=== PATIENT | female | born 1970 | race Two or more races ===

== ENCOUNTER 2023-05-18 17:41 | Emergency (ER) | payer OTHER ==
[~2023-05-18] VITALS: Ht 157.5 cm; Wt 70.8 kg
[2023-05-18] MEDS ORDERED: COZAAR100 MG PO (18:03)
[2023-05-18] MEDS ORDERED: LANTUS SOL100 UNIT/1 (18:03)
[2023-05-18] MEDS ORDERED: HUMALOG100 UNIT/1 (18:03)
[2023-05-18] MEDS ORDERED: CLINDAMYCIN PHOSPHATE 150 MG/ML (600mg) IM STA (18:52)
[2023-05-18] MEDS ORDERED: CLEOCIN HCL300 MG PO (19:13)
== END 2023-05-18 19:38 | disposition home or self-care (01) ==
LOC: ER 17:41
DX: L01.09 Other impetigo (principal); E11.9 Type 2 diabetes mellitus without complications; Z79.4 Long term (current) use of insulin; I10 Essential (primary) hypertension; I73.89 Other specified peripheral vascular diseases

== ENCOUNTER 2023-05-24 19:16 | Inpatient (IN) | payer OTHER ==
[~2023-05-24] VITALS: Ht 167.6 cm; Wt 77.1 kg
[~2023-05-24 19:16] MED LIST: CLEOCIN HCL300 MG PO; COZAAR100 MG PO; HUMALOG100 UNIT/1; LANTUS SOL100 UNIT/1
[2023-05-24] MEDS ORDERED: INSULIN REGULAR, HUMAN 1,000 UNIT/10 ML UNITS IV ONE (19:30)
[2023-05-24] MEDS ORDERED: ONDANSETRON HCL 2 MG/ML VIAL IV ONE (19:30)
[2023-05-24] MEDS ORDERED: 0.9 % SODIUM CHLORIDE 1,000 ML IV SCH ×2 (19:30→21:30)
[2023-05-24 19:53] LABS: HEMATOCRIT 34.9 % (36.0-45.00); HEMOGLOBIN 11.1 g/dL (12.0-15.00); MEAN CELL VOLUME 93.8 fL (80.00-100.00); MEAN CORPUSCULAR HEMOGLOBIN 29.7 pg (27.00-32.0); MEAN CORPUSCULAR HGB CONC 31.7 g/dl (32.0-36.0); PLATELET COUNT 316 K/uL (150-450); RED BLOOD COUNT 3.72 M/uL (4.00-6.00)
[2023-05-24 20:19] LABS: ALBUMIN 3.4 gm/dL (3.4-5.0); BILIRUBIN TOTAL 1.49 mg/dL (0.3-1.2); CALCIUM 9.2 mg/dL (8.5-10.1); CREATININE SERUM 1.44 mg/dL (0.55-1.02); GFR 38.53; GLOBULINA 4.1 G/DL (2.4-3.5); POTASSIUM 5.67 mEq/L (3.5-5.1); TOTAL PROTEIN 7.5 gm/dL (6.4-8.2)
[2023-05-24] MEDS ORDERED: INSULIN REGULAR, HUMAN 1,000 UNIT/10 ML UNITS IV SCH (20:30)
[2023-05-24 21:04] LABS: ABG PO2 115.2 mmHg (80-100); ABG pCO2 33.5 mmHg (35-45); BASE EXCESS -12.7 mmol/l; BICARBONATE 13.7 mmol/l (23-25); SaO2 97.1 %; Tco2 14.7 mmol/l
[2023-05-24 21:05] LABS: allen test SATISFACTORY; o2 24 %; puncture site RADIAL LEFT
[2023-05-24] MEDS ORDERED: CEFEPIME HCL 1,000 MG in 0.9 % SODIUM CHLORIDE 50 ML IV SCH (21:44)
[2023-05-24] MEDS ORDERED: ACETAMINOPHEN 500 MG GEL..CAP PO PRN (21:45)
[2023-05-24] MEDS ORDERED: VANCOMYCIN HCL 1,000 MG VIAL IV SCH (21:51)
[2023-05-24 22:00] LABS: URINE APPEARANCE Clear; URINE BILIRRUBIN Negative (NEGATIVE); URINE BLOOD Negative; URINE COLOR Yellow; URINE LEUKOCYTE Negative; URINE NITRATE Negative; URINE PROTEIN Trace (NEGATIVE); URINE UROBILINOGEN 0.2 E.U./dl
[2023-05-24] MEDS ORDERED: ONDANSETRON HCL 4 MG in 0.9 % SODIUM CHLORIDE 50 ML IV PRN (22:00)
[2023-05-24 22:03] LABS: URINE BACTERIA 84.4 uL (0.0-1933); URINE EPITHELIAL CELLS 9.8 uL (0.0-38.8); URINE RBC 2.8 uL (0.0-20.8); URINE WBC 43.7 uL (0.0-23.2)
[2023-05-24 22:04] LABS: URINE GLUCOSE >=1000 MG/DL (NEGATIVE)
[2023-05-25 00:37] LABS: CALCIUM 9.2 mg/dL (8.5-10.1); CREATININE SERUM 1.36 mg/dL (0.55-1.02); GFR 41.16; MAGNESIUM 2.2 mg/dL (1.8-2.4); PHOSPHOROUS 3.7 mg/dL (2.5-4.9); POTASSIUM 4.69 mEq/L (3.5-5.1)
[2023-05-25 00:38] LABS: INR < 0.93; PARTIAL THROMBOPLASTIN TIME 26.7 SECONDS (22.0-34.0); PROTHROMBIN TIME 9.6 SECONDS (9.0-11.5)
[2023-05-25 01:58] LABS: CALCIUM 8.9 mg/dL (8.5-10.1); CREATININE SERUM 1.16 mg/dL (0.55-1.02); GFR 49.45; POTASSIUM 4.41 mEq/L (3.5-5.1)
[2023-05-25] MEDS ORDERED: DEXTROSE 5 % IN WATER 1,000 ML IV SCH (04:15)
[2023-05-25 07:31] LABS: ABG PH 7.311 (7.35-7.45); ABG PO2 104.7 mmHg (80-100); ABG pCO2 39.9 mmHg (35-45); BASE EXCESS -6.1 mmol/l; BICARBONATE 19.7 mmol/l (23-25); Tco2 20.9 mmol/l; o2 21 %
[2023-05-25 07:32] LABS: allen test SATISFACTORY; puncture site RADIAL LEFT
[2023-05-25 07:33] LABS: SaO2 97.2 %
[2023-05-25 07:51] LABS: CALCIUM 8.3 mg/dL (8.5-10.1); CREATININE SERUM 0.97 mg/dL (0.55-1.02); GFR 60.79; POTASSIUM 4.41 mEq/L (3.5-5.1)
[2023-05-25] MEDS ORDERED: FAMOTIDINE/PF 20 MG in 0.9 % SODIUM CHLORIDE 8 ML IV PUSH SCH (09:00)
[2023-05-25 12:05] LABS: CALCIUM 9.4 mg/dL (8.5-10.1); CREATININE SERUM 0.9 mg/dL (0.55-1.02); GFR 66.27; POTASSIUM 4.24 mEq/L (3.5-5.1)
[2023-05-25] MEDS ORDERED: INSULIN GLARGINE,HUM.REC.ANLOG 1,000 UNITS/10 ML UNITS SUBCUTANEO STA (13:47)
[2023-05-25] MEDS ORDERED: INSULIN LISPRO 1,000 UNIT/10 ML UNITS SUBCUTANEO PRN (14:15)
[2023-05-25] MEDS ORDERED: DEXTROSE 50 % IN WATER 0.5 G/ML DISP.SYRIN IV PRN (14:15)
[2023-05-25] MEDS ORDERED: LOSARTAN POTASSIUM 25 MG TABLET PO SCH (16:45)
[2023-05-25] MEDS ORDERED: INSULIN LISPRO 1,000 UNIT/10 ML UNITS SUBCUTANEO SCH (17:00)
[2023-05-25] MEDS ORDERED: NITROGLYCERIN IN 5 % DEXTROSE 50 MG/250 ML KIT IV ONE (22:25)
[2023-05-26 06:23] LABS: ABG PH 7.392 (7.35-7.45); ABG pCO2 44.5 mmHg (35-45); BASE EXCESS 1.1 mmol/l; BICARBONATE 26.5 mmol/l (23-25); SaO2 94.2 %; Tco2 27.8 mmol/l; allen test SATISFACTORY; o2 21 %; puncture site RADIAL RIGHT
[2023-05-26 07:23] LABS: HEMATOCRIT 32.2 % (36.0-45.00); HEMOGLOBIN 10.9 g/dL (12.0-15.00); MEAN CELL VOLUME 90.7 fL (80.00-100.00); MEAN CORPUSCULAR HEMOGLOBIN 30.6 pg (27.00-32.0); MEAN CORPUSCULAR HGB CONC 33.7 g/dl (32.0-36.0); PLATELET COUNT 246 K/uL (150-450); RED BLOOD COUNT 3.55 M/uL (4.00-6.00); RED CELL DISTRIBUTION WIDTH 14.8 % (11.5-14.5)
[2023-05-26] MEDS ORDERED: FAMOTIDINE/PF 20 MG/2 ML VIAL ONE (07:42)
[2023-05-26 07:56] LABS: ALBUMIN 2.7 gm/dL (3.4-5.0); BILIRUBIN TOTAL 1.69 mg/dL (0.3-1.2); CALCIUM 8.6 mg/dL (8.5-10.1); CREATININE SERUM 0.77 mg/dL (0.55-1.02); GFR 79.35; GLOBULINA 3.3 G/DL (2.4-3.5); MAGNESIUM 1.8 mg/dL (1.8-2.4); POTASSIUM 4.56 mEq/L (3.5-5.1)
[2023-05-26] MEDS ORDERED: INSULIN LISPRO 1,000 UNIT/10 ML UNITS SUBCUTANEO SCH (08:00)
[2023-05-26 08:12] LABS: C-REACTIVE PROTEIN 1.18 MG/DL (0.00-0.29)
[2023-05-26] MEDS ORDERED: CHLORHEXIDINE GLUCONATE 120 ML BOTTLE TOP ONE ×2 (10:38→15:45)
[2023-05-26] MEDS ORDERED: INSULIN GLARGINE,HUM.REC.ANLOG 1,000 UNITS/10 ML UNITS SUBCUTANEO SCH ×2 (12:00)
[2023-05-27] MEDS ORDERED: DIPHENHYDRAMINE HCL 50 MG/ML VIAL 1ML IV ONE (00:45)
[2023-05-27] MEDS ORDERED: FAMOTIDINE/PF 20 MG/2 ML VIAL ONE (07:43)
[2023-05-27 08:08] LABS: ALBUMIN 2.5 gm/dL (3.4-5.0); BILIRUBIN TOTAL 2.52 mg/dL (0.3-1.2); BILIRUBIN,CONJUGATED 1.97 mg/dL (0.0-0.2); BILIRUBIN,UNCONJUGATED 0.55 mg/dL (0.0-0.6); CALCIUM 8.1 mg/dL (8.5-10.1); CREATININE SERUM 0.58 mg/dL (0.55-1.02); GFR 110.04; GLOBULINA 3.1 G/DL (2.4-3.5); MAGNESIUM 1.7 mg/dL (1.8-2.4); POTASSIUM 3.67 mEq/L (3.5-5.1); TOTAL PROTEIN 5.6 gm/dL (6.4-8.2)
[2023-05-27] MEDS ORDERED: SODIUM CHLORIDE 0.45 % 1,000 ML IV SCH (09:00)
[2023-05-27] MEDS ORDERED: GABAPENTIN 300 MG CAPSULE PO SCH (13:01)
[2023-05-27] MEDS ORDERED: LOSARTAN POTASSIUM 25 MG TABLET PO STA (13:02)
[2023-05-27] MEDS ORDERED: CETIRIZINE HCL 5 MG/5 ML ML PO SCH (13:03)
[2023-05-28 07:10] LABS: CREATININE SERUM 0.64 mg/dL (0.55-1.02); GFR 98.22; POTASSIUM 4.17 mEq/L (3.5-5.1)
[2023-05-28] MEDS ORDERED: INSULIN LISPRO 1,000 UNIT/10 ML UNITS SUBCUTANEO SCH (08:00)
[2023-05-28] MEDS ORDERED: LOSARTAN POTASSIUM 50 MG TABLET PO SCH (09:00)
[2023-05-28] MEDS ORDERED: INSULIN GLARGINE,HUM.REC.ANLOG 1,000 UNITS/10 ML UNITS SUBCUTANEO SCH (12:00)
[2023-05-28] MEDS ORDERED: FAMOtidine 20 MG TABLET PO SCH (21:00)
[2023-05-29 11:43] LABS: HEMATOCRIT 36.9 % (36.0-45.00); HEMOGLOBIN 12.2 g/dL (12.0-15.00); MEAN CELL VOLUME 90.8 fL (80.00-100.00); MEAN CORPUSCULAR HEMOGLOBIN 30.1 pg (27.00-32.0); MEAN CORPUSCULAR HGB CONC 33.2 g/dl (32.0-36.0); PLATELET COUNT 274 K/uL (150-450); RED BLOOD COUNT 4.06 M/uL (4.00-6.00); RED CELL DISTRIBUTION WIDTH 15.2 % (11.5-14.5)
[2023-05-29] MEDS ORDERED: INSULIN GLARGINE,HUM.REC.ANLOG 1,000 UNITS/10 ML UNITS SUBCUTANEO SCH (12:00)
[2023-05-29 12:32] LABS: ALBUMIN 3.3 gm/dL (3.4-5.0); BILIRUBIN TOTAL 3.16 mg/dL (0.3-1.2); CALCIUM 9.9 mg/dL (8.5-10.1); CREATININE SERUM 0.7 mg/dL (0.55-1.02); GFR 88.57; GLOBULINA 4.4 G/DL (2.4-3.5); PHOSPHOROUS 3.8 mg/dL (2.5-4.9); POTASSIUM 4.18 mEq/L (3.5-5.1); TOTAL PROTEIN 7.7 gm/dL (6.4-8.2)
[2023-05-29] MEDS ORDERED: CEFEPIME HCL 1,000 MG in 0.9 % SODIUM CHLORIDE 50 ML IV SCH (17:00)
[2023-05-29] MEDS ORDERED: DIPHENHYDRAMINE HCL 50 MG/ML VIAL 1ML IV ONE (20:45)
[2023-05-30] MEDS ORDERED: DIPHENHYDRAMINE HCL 12.5 MG/5 ML BLIST.PACK PO ONE (06:45)
[2023-05-30 07:47] LABS: HEMOGLOBIN 11.3 g/dL (12.0-15.00); MEAN CELL VOLUME 91.2 fL (80.00-100.00); MEAN CORPUSCULAR HEMOGLOBIN 30.5 pg (27.00-32.0); MEAN CORPUSCULAR HGB CONC 33.4 g/dl (32.0-36.0); PLATELET COUNT 249 K/uL (150-450); RED BLOOD COUNT 3.72 M/uL (4.00-6.00); RED CELL DISTRIBUTION WIDTH 15.5 % (11.5-14.5)
[2023-05-30 08:07] LABS: BILIRUBIN TOTAL 2.14 mg/dL (0.3-1.2); CALCIUM 9.9 mg/dL (8.5-10.1); CREATININE SERUM 0.59 mg/dL (0.55-1.02); FERRITIN 217.2 NG/ML (8-252); GFR 107.89; GLOBULINA 3.8 G/DL (2.4-3.5); POTASSIUM 4.32 mEq/L (3.5-5.1); TOTAL PROTEIN 6.8 gm/dL (6.4-8.2)
[2023-05-30] MEDS ORDERED: FOLIC ACID 1 MG TABLET PO SCH (16:10)
[2023-05-30] MEDS ORDERED: CYANOCOBALAMIN (VITAMIN B-12) 1,000 MCG TABLET PO SCH (16:10)
[2023-05-30] MEDS ORDERED: MULTIVIT-MIN/IRON FUM/FOLIC AC 1 TAB TABLET PO SCH (16:11)
[2023-05-30] MEDS ORDERED: NALTREXONE HCL 50 MG TABLET PO SCH (17:00)
[2023-05-30] MEDS ORDERED: AMINO ACIDS 1 EACH TABLET PO SCH (17:00)
[2023-05-31] MEDS ORDERED: NALTREXONE HCL 50 MG TABLET PO SCH (09:00)
[2023-05-31] MEDS ORDERED: fentaNYL CITRATE 50 MCG/ML AMPUL IV PUSH ONE (16:30)
[2023-05-31] MEDS ORDERED: MIDAZOLAM HCL 2 MG/2 ML VIAL IV PUSH ONE (16:30)
[2023-05-31] MEDS ORDERED: DIPHENHYDRAMINE HCL 50 MG/ML VIAL 1ML IV ONE (22:15)
[2023-06-01 01:06] LABS: hav igm Negative (Negative); hcv Non Reactive (Non Reactive); hep b c Negative (Negative)
[2023-06-01 07:30] LABS: ALBUMIN 2.6 gm/dL (3.4-5.0); BILIRUBIN TOTAL 0.99 mg/dL (0.3-1.2); CALCIUM 9.4 mg/dL (8.5-10.1); CREATININE SERUM 0.72 mg/dL (0.55-1.02); GFR 85.74; GLOBULINA 3.5 G/DL (2.4-3.5); MAGNESIUM 1.9 mg/dL (1.8-2.4); PHOSPHOROUS 4.4 mg/dL (2.5-4.9); POTASSIUM 4.65 mEq/L (3.5-5.1); TOTAL PROTEIN 6.1 gm/dL (6.4-8.2)
[2023-06-01 07:36] LABS: HEMOGLOBIN 10.9 g/dL (12.0-15.00); MEAN CELL VOLUME 92.8 fL (80.00-100.00); MEAN CORPUSCULAR HEMOGLOBIN 30.5 pg (27.00-32.0); MEAN CORPUSCULAR HGB CONC 32.9 g/dl (32.0-36.0); RED BLOOD COUNT 3.56 M/uL (4.00-6.00); RED CELL DISTRIBUTION WIDTH 15.3 % (11.5-14.5)
[2023-06-01] MEDS ORDERED: INSULIN LISPRO 1,000 UNIT/10 ML UNITS SUBCUTANEO SCH (08:00)
[2023-06-01 08:38] LABS: PLATELET COUNT 240 K/uL (150-450)
[2023-06-02] MEDS ORDERED: RINGERS SOLUTION,LACTATED 1,000 ML IV SCH (19:15)
[2023-06-03 07:35] LABS: HEMATOCRIT 33.9 % (36.0-45.00); HEMOGLOBIN 11.2 g/dL (12.0-15.00); MEAN CELL VOLUME 91.6 fL (80.00-100.00); MEAN CORPUSCULAR HEMOGLOBIN 30.3 pg (27.00-32.0); MEAN CORPUSCULAR HGB CONC 33.1 g/dl (32.0-36.0); PLATELET COUNT 258 K/uL (150-450); RED CELL DISTRIBUTION WIDTH 15.4 % (11.5-14.5)
[2023-06-03 07:51] LABS: ALBUMIN 2.8 gm/dL (3.4-5.0); BILIRUBIN TOTAL 1.08 mg/dL (0.3-1.2); CALCIUM 9.4 mg/dL (8.5-10.1); CREATININE SERUM 0.68 mg/dL (0.55-1.02); GFR 91.59; GLOBULINA 3.8 G/DL (2.4-3.5); POTASSIUM 4.69 mEq/L (3.5-5.1); TOTAL PROTEIN 6.6 gm/dL (6.4-8.2)
[2023-06-03] MEDS ORDERED: INSULIN LISPRO 1,000 UNIT/10 ML UNITS SUBCUTANEO SCH (17:02)
[2023-06-04] MEDS ORDERED: GABAPENTIN300 MG PO (12:02)
[2023-06-04] MEDS ORDERED: COZAAR50 MG PO (12:02)
[2023-06-04] MEDS ORDERED: NALTREXONE HCL50 MG PO (12:02)
[2023-06-04] MEDS ORDERED: PRE PROTEIN1 EACH PO (12:03)
[2023-06-04] MEDS ORDERED: INSULIN GL100 UNIT/3 SUBCUTANEO (12:04)
[2023-06-04] MEDS ORDERED: INSULIN LI100 UNIT/1 SUBCUTANEO (12:05)
[2023-06-04] MEDS ORDERED: MULTIVITAMIN-M1 EACH PO (12:06)
[2023-06-04] MEDS ORDERED: VITAMIN B-121000 MCG PO (12:06)
[2023-06-04] MEDS ORDERED: FOLIC ACID1 MG PO (12:06)
== END 2023-06-04 16:32 | disposition home or self-care (01) | DRG 853 ==
LOC: ER 19:16 → ICU 21:55 → ICU-2 21:55 → ICU 05-25 02:54 → MEDI 05-27 18:59
PROVIDERS: General Practice; Internal Medicine Endocrinology, Diabetes & Metabolism; ADMIT Internal Medicine; ATTEND Internal Medicine
PROC: B44HZZZ Ultrasonography of Bilateral Lower Extremity Arteries (ICD-10-PCS; 2023-05-24)
PROC: B54DZZZ Ultrasonography of Bilateral Lower Extremity Veins (ICD-10-PCS; 2023-05-24)
PROC: 0JDP0ZZ Extraction of Left Lower Leg Subcutaneous Tissue and Fascia, Open Approach (ICD-10-PCS; 2023-05-25)
PROC: 0JDN0ZZ Extraction of Right Lower Leg Subcutaneous Tissue and Fascia, Open Approach (ICD-10-PCS; 2023-05-25)
PROC: BW40ZZZ Ultrasonography of Abdomen (ICD-10-PCS; 2023-05-26)
PROC: BF37ZZZ Magnetic Resonance Imaging (MRI) of Pancreas (ICD-10-PCS; 2023-05-27)
PROC: BW30YZZ Magnetic Resonance Imaging (MRI) of Abdomen using Other Contrast (ICD-10-PCS; 2023-05-29)
PROC: 0JDN0ZZ Extraction of Right Lower Leg Subcutaneous Tissue and Fascia, Open Approach (ICD-10-PCS; principal; 2023-05-30)
PROC: 0JDP0ZZ Extraction of Left Lower Leg Subcutaneous Tissue and Fascia, Open Approach (ICD-10-PCS; 2023-05-30)
PROC: 0FB03ZX Excision of Liver, Percutaneous Approach, Diagnostic (ICD-10-PCS; 2023-05-31)
DX: A41.9 Sepsis, unspecified organism (principal); E10.10 Type 1 diabetes mellitus with ketoacidosis without coma; N17.9 Acute kidney failure, unspecified; L97.923 Non-pressure chronic ulcer of unspecified part of left lower leg with necrosis of muscle; L97.913 Non-pressure chronic ulcer of unspecified part of right lower leg with necrosis of muscle; E87.0 Hyperosmolality and hypernatremia; E10.622 Type 1 diabetes mellitus with other skin ulcer; E86.0 Dehydration; Z79.4 Long term (current) use of insulin; L08.9 Local infection of the skin and subcutaneous tissue, unspecified; B95.61 Methicillin susceptible Staphylococcus aureus infection as the cause of diseases classified elsewhere; B96.5 Pseudomonas (aeruginosa) (mallei) (pseudomallei) as the cause of diseases classified elsewhere; B96.89 Other specified bacterial agents as the cause of diseases classified elsewhere; D64.9 Anemia, unspecified; K75.89 Other specified inflammatory liver diseases; E78.5 Hyperlipidemia, unspecified
CPT/HCPCS: 74182

== ENCOUNTER 2023-09-27 18:39 | Emergency (ER) | payer OTHER ==
[~2023-09-27] VITALS: Ht 157.5 cm; Wt 66.7 kg
[~2023-09-27 18:39] MED LIST changes: +COZAAR50 MG PO; +FOLIC ACID1 MG PO; +GABAPENTIN300 MG PO; +INSULIN GL100 UNIT/3 SUBCUTANEO; +INSULIN LI100 UNIT/1 SUBCUTANEO; +MULTIVITAMIN-M1 EACH PO; +NALTREXONE HCL50 MG PO; +PRE PROTEIN1 EACH PO; +VITAMIN B-121000 MCG PO
[2023-09-27] MEDS ORDERED: KETOROLAC TROMETHAMINE 30 MG VIAL IM ONE (19:30)
[2023-09-27 19:39] LABS: HEMATOCRIT 36.8 % (36.0-45.00); HEMOGLOBIN 12.4 g/dL (12.0-15.00); MEAN CELL VOLUME 88.2 fL (80.00-100.00); MEAN CORPUSCULAR HEMOGLOBIN 29.7 pg (27.00-32.0); MEAN CORPUSCULAR HGB CONC 33.7 g/dl (32.0-36.0); PLATELET COUNT 346 K/uL (150-450); RED BLOOD COUNT 4.18 M/uL (4.00-6.00)
[2023-09-27 20:01] LABS: INR < 0.93; PARTIAL THROMBOPLASTIN TIME 24.5 SECONDS (22.0-34.0); PROTHROMBIN TIME 9.6 SECONDS (9.0-11.5)
[2023-09-27 20:03] LABS: CALCIUM 9.6 mg/dL (8.5-10.1); CREATININE SERUM 0.67 mg/dL (0.55-1.02); GFR 92.79; POTASSIUM 3.79 mEq/L (3.5-5.1)
[2023-09-27 20:38] LABS: URINE APPEARANCE Clear; URINE BILIRRUBIN Negative (NEGATIVE); URINE BLOOD Negative; URINE COLOR Yellow; URINE GLUCOSE Negative (NEGATIVE); URINE KETONE Negative (NEGATIVE); URINE LEUKOCYTE Trace; URINE NITRATE Negative; URINE PROTEIN Negative (NEGATIVE); URINE UROBILINOGEN 0.2 E.U./dl
[2023-09-27 20:41] LABS: URINE BACTERIA 18.8 uL (0.0-1933); URINE WBC 18.8 uL (0.0-23.2)
[2023-09-27 20:47] LABS: URINE CAST 0.15 uL (0.0-1.40); URINE RBC 0.1 uL (0.0-20.8)
== END 2023-09-27 23:32 | disposition home or self-care (01) ==
LOC: ER 18:40
PROVIDERS: Emergency Medicine
DX: K59.00 Constipation, unspecified (principal); E11.9 Type 2 diabetes mellitus without complications; Z79.4 Long term (current) use of insulin; I10 Essential (primary) hypertension; Z88.8 Allergy status to other drugs, medicaments and biological substances

== ENCOUNTER 2023-11-23 19:30 | Inpatient (IN) | payer OTHER ==
[~2023-11-23] VITALS: Ht 157.5 cm; Wt 68.0 kg
[2023-11-23] MEDS ORDERED: HYOSCYAMINE SULFATE 0.125 MG TAB.SUBL SL ONE (22:00)
[2023-11-23] MEDS ORDERED: PANTOPRAZOLE SODIUM 40 MG/VIAL VIAL IV PUSH ONE (22:00)
[2023-11-23] MEDS ORDERED: MAG HYDROX/ALUMINUM HYD/SIMETH 30 ML BLIST.PACK PO ONE (22:00)
[2023-11-23 23:10] LABS: HEMATOCRIT 34.1 % (36.0-45.00); HEMOGLOBIN 11.6 g/dL (12.0-15.00); MEAN CELL VOLUME 89.5 fL (80.00-100.00); MEAN CORPUSCULAR HEMOGLOBIN 30.4 pg (27.00-32.0); MEAN CORPUSCULAR HGB CONC 33.9 g/dl (32.0-36.0); PLATELET COUNT 292 K/uL (150-450); RED BLOOD COUNT 3.81 M/uL (4.00-6.00); RED CELL DISTRIBUTION WIDTH 13.4 % (11.5-14.5)
[2023-11-23 23:12] LABS: PH,URINE 5.5 (5.0-8.0); URINE APPEARANCE Clear; URINE BILIRRUBIN Negative (NEGATIVE); URINE BLOOD Moderate; URINE COLOR Yellow; URINE KETONE 15 (NEGATIVE); URINE LEUKOCYTE Moderate; URINE NITRATE Negative; URINE PROTEIN Trace (NEGATIVE)
[2023-11-23 23:17] LABS: URINE BACTERIA 2559.9 uL (0.0-1933); URINE EPITHELIAL CELLS 15.3 uL (0.0-38.8); URINE WBC 172.7 uL (0.0-23.2)
[2023-11-23 23:19] LABS: URINE GLUCOSE 100 MG/DL (NEGATIVE)
[2023-11-23 23:30] LABS: ALBUMIN 2.9 gm/dL (3.4-5.0); BILIRUBIN TOTAL 2.97 mg/dL (0.3-1.2); BILIRUBIN,CONJUGATED 1.86 mg/dL (0.0-0.2); BILIRUBIN,UNCONJUGATED 1.11 mg/dL (0.0-0.6); CALCIUM 9.8 mg/dL (8.5-10.1); CREATININE SERUM 0.99 mg/dL (0.55-1.02); GFR 59.13; GLOBULINA 5.1 G/DL (2.4-3.5); POTASSIUM 3.87 mEq/L (3.5-5.1)
[2023-11-24] MEDS ORDERED: CIPROFLOXACIN IN 5 % DEXTROSE 400 MG/200 ML PIGGYBAG IV STA (00:58)
[2023-11-24 03:00] LABS: LIPASE 15 U/L (13-75)
[2023-11-24 03:01] LABS: AMYLASE 12 U/L (25-115)
[2023-11-24] MEDS ORDERED: FAMOTIDINE/PF 20 MG/2 ML VIAL IV PUSH ONE (08:15)
[2023-11-24] MEDS ORDERED: LABETALOL HCL 200 MG/40 ML VIAL IV ONE (09:00)
[2023-11-24] MEDS ORDERED: MEPERIDINE HCL/PF 25 MG/ML VIAL IM ONE (09:00)
[2023-11-24 18:04] LABS: HEMATOCRIT 33.7 % (36.0-45.00); HEMOGLOBIN 11.6 g/dL (12.0-15.00); MEAN CELL VOLUME 88.5 fL (80.00-100.00); MEAN CORPUSCULAR HEMOGLOBIN 30.6 pg (27.00-32.0); MEAN CORPUSCULAR HGB CONC 34.6 g/dl (32.0-36.0); PLATELET COUNT 322 K/uL (150-450)
[2023-11-24 18:29] LABS: ALBUMIN 2.7 gm/dL (3.4-5.0); BILIRUBIN TOTAL 2.73 mg/dL (0.3-1.2); BILIRUBIN,CONJUGATED 1.74 mg/dL (0.0-0.2); BILIRUBIN,UNCONJUGATED 0.99 mg/dL (0.0-0.6); CREATININE SERUM 1.06 mg/dL (0.55-1.02); GFR 54.65; POTASSIUM 3.95 mEq/L (3.5-5.1); TOTAL PROTEIN 8.1 gm/dL (6.4-8.2)
[2023-11-24] MEDS ORDERED: INSULIN LISPRO 1,000 UNIT/10 ML UNITS SUBCUTANEO PRN (19:30)
[2023-11-24] MEDS ORDERED: 0.9 % SODIUM CHLORIDE 1,000 ML IV SCH (19:30)
[2023-11-24] MEDS ORDERED: DEXTROSE 50 % IN WATER 0.5 G/ML DISP.SYRIN IV PRN (19:30)
[2023-11-24] MEDS ORDERED: ACETAMINOPHEN 500 MG GEL..CAP PO PRN (19:45)
[2023-11-24] MEDS ORDERED: hydrALAZINE HCL 20 MG VIAL IV PRN (19:45)
[2023-11-24] MEDS ORDERED: MORPHINE SULFATE 2 MG/ML CARTRIDGE IV PRN (19:45)
[2023-11-24] MEDS ORDERED: ONDANSETRON HCL 4 MG in DEXTROSE 5 % IN WATER 50 ML IV PRN (19:45)
[2023-11-24 23:55] VITALS: BP 144/76; O2SAT 97
[2023-11-25] MEDS ORDERED: PIPERACILLIN/TAZOBACTAM SODIUM 3.375 GM in 0.9 % SODIUM CHLORIDE 100 ML IV SCH
[2023-11-25 01:00] VITALS: BP 133/69; O2SAT 96
[2023-11-25 07:34] LABS: INR 0.97; PARTIAL THROMBOPLASTIN TIME 29.3 SECONDS (22.0-34.0); PROTHROMBIN TIME 10.6 SECONDS (9.0-11.5)
[2023-11-25 07:52] LABS: ALBUMIN 2.5 gm/dL (3.4-5.0); BILIRUBIN TOTAL 2.14 mg/dL (0.3-1.2); BILIRUBIN,CONJUGATED 1.54 mg/dL (0.0-0.2); BILIRUBIN,UNCONJUGATED 0.6 mg/dL (0.0-0.6); CALCIUM 8.7 mg/dL (8.5-10.1); CHOL HDL RATIO 9.6 (0-5.0); CREATININE SERUM 1.09 mg/dL (0.55-1.02); GFR 52.92; GLOBULINA 3.9 G/DL (2.4-3.5); POTASSIUM 4.43 mEq/L (3.5-5.1); T4 FREE 1.34 NG/ML (0.76-1.46); TOTAL PROTEIN 6.4 gm/dL (6.4-8.2); TSH 1.96 uIU/mL (0.358-3.74)
[2023-11-25 07:55] LABS: HEMATOCRIT 30.2 % (36.0-45.00); HEMOGLOBIN 10.2 g/dL (12.0-15.00); MEAN CELL VOLUME 89.9 fL (80.00-100.00); MEAN CORPUSCULAR HEMOGLOBIN 30.5 pg (27.00-32.0); MEAN CORPUSCULAR HGB CONC 33.9 g/dl (32.0-36.0); PLATELET COUNT 285 K/uL (150-450); RED BLOOD COUNT 3.36 M/uL (4.00-6.00)
[2023-11-25 07:58] LABS: C-REACTIVE PROTEIN 15.6 MG/DL (0.00-0.29)
[2023-11-25 08:00] VITALS: BP 143/75; O2SAT 97
[2023-11-25 08:18] LABS: PH,URINE 5.5 (5.0-8.0); URINE APPEARANCE Clear; URINE BILIRRUBIN Negative (NEGATIVE); URINE BLOOD Small; URINE COLOR Yellow; URINE KETONE 15 (NEGATIVE); URINE LEUKOCYTE Trace; URINE NITRATE Negative; URINE PROTEIN Trace (NEGATIVE)
[2023-11-25 08:31] LABS: URINE BACTERIA 297.3 uL (0.0-1933); URINE EPITHELIAL CELLS 35.7 uL (0.0-38.8); URINE WBC 55.3 uL (0.0-23.2)
[2023-11-25 08:53] LABS: ERYTHROCYTE SEDIMENTATION RATE 98 mm/hr
[2023-11-25] MEDS ORDERED: LOSARTAN POTASSIUM 50 MG TABLET PO SCH (09:00)
[2023-11-25] MEDS ORDERED: ENOXAPARIN SODIUM 40 MG/0.4 ML SYRINGE SUBCUTANEO SCH (09:00)
[2023-11-25] MEDS ORDERED: PANTOPRAZOLE SODIUM 40 MG in 0.9 % SODIUM CHLORIDE 8 ML IV PUSH SCH (09:00)
[2023-11-25 09:50] LABS: URINE CAST 0.15 uL (0.0-1.40); URINE GLUCOSE >=1000 MG/DL (NEGATIVE)
[2023-11-25 09:53] LABS: URINE YEAST FEW /hpf
[2023-11-25] MEDS ORDERED: SIMETHICONE 125 MG CAPSULE PO SCH (13:00)
[2023-11-25 16:59] VITALS: BP 148/74; O2SAT 98
[2023-11-25] MEDS ORDERED: INSULIN LISPRO 1,000 UNIT/10 ML UNITS SUBCUTANEO SCH (17:00)
[2023-11-25] MEDS ORDERED: INSULIN GLARGINE,HUM.REC.ANLOG 1,000 UNITS/10 ML UNITS SUBCUTANEO SCH (21:00)
[2023-11-26 01:28] VITALS: BP 128/66; O2SAT 99
[2023-11-26 07:21] LABS: FERRITIN 361.9 NG/ML (8-252)
[2023-11-26 07:50] LABS: PLATELET ESTIMATE NORMAL (NORMAL)
[2023-11-26 08:30] VITALS: BP 123/67; O2SAT 92
[2023-11-26 15:50] VITALS: BP 112/62; O2SAT 95
[2023-11-27 00:11] VITALS: BP 153/75
[2023-11-27 06:36] LABS: HEMATOCRIT 26.1 % (36.0-45.00); MEAN CELL VOLUME 88.8 fL (80.00-100.00); MEAN CORPUSCULAR HGB CONC 33.5 g/dl (32.0-36.0); PLATELET COUNT 322 K/uL (150-450); RED BLOOD COUNT 2.94 M/uL (4.00-6.00); RED CELL DISTRIBUTION WIDTH 13.4 % (11.5-14.5)
[2023-11-27 06:37] LABS: HEMOGLOBIN 8.7 g/dL (12.0-15.00); MEAN CORPUSCULAR HEMOGLOBIN 29.5 pg (27.00-32.0)
[2023-11-27 07:02] LABS: ALBUMIN 2.3 gm/dL (3.4-5.0); BILIRUBIN TOTAL 1.14 mg/dL (0.3-1.2); CREATININE SERUM 0.77 mg/dL (0.55-1.02); GFR 79.03; GLOBULINA 3.6 G/DL (2.4-3.5); MAGNESIUM 1.8 mg/dL (1.8-2.4); PHOSPHOROUS 3.4 mg/dL (2.5-4.9); POTASSIUM 4.07 mEq/L (3.5-5.1); TOTAL PROTEIN 5.9 gm/dL (6.4-8.2)
[2023-11-27 08:16] VITALS: BP 143/78; O2SAT 98
[2023-11-27] MEDS ORDERED: ATORVASTATIN CALCIUM 20 MG TABLET PO SCH (09:00)
[2023-11-27] MEDS ORDERED: DEFEROXAMINE MESYLATE 500 MG VIAL IV NR (09:00)
[2023-11-27] MEDS ORDERED: INSULIN LISPRO 1,000 UNIT/10 ML UNITS SUBCUTANEO SCH (12:00)
[2023-11-27] MEDS ORDERED: IRON FUM,PS/FOLIC/BCOMP,C NO.9 1 CAP CAPSULE PO SCH (17:17)
[2023-11-27 17:36] VITALS: BP 150/73
[2023-11-27] MEDS ORDERED: PYRIDOXINE HCL 100 MG TABLET PO SCH (17:44)
[2023-11-27] MEDS ORDERED: FOLIC ACID 1 MG TABLET PO SCH (17:44)
[2023-11-27] MEDS ORDERED: CYANOCOBALAMIN (VITAMIN B-12) 1,000 MCG TABLET PO SCH (17:44)
[2023-11-27] MEDS ORDERED: INSULIN GLARGINE,HUM.REC.ANLOG 1,000 UNITS/10 ML UNITS SUBCUTANEO SCH (21:00)
[2023-11-28 00:13] VITALS: BP 164/75; O2SAT 98
[2023-11-28] MEDS ORDERED: INSULIN LISPRO 1,000 UNIT/10 ML UNITS SUBCUTANEO SCH (08:12)
[2023-11-28 09:44] VITALS: BP 172/80; O2SAT 97
[2023-11-28] MEDS ORDERED: LOSARTAN POTASSIUM 50 MG TABLET PO STA (10:13)
[2023-11-28] MEDS ORDERED: INTESTINEX680 M1 PO (10:39)
[2023-11-28] MEDS ORDERED: AMOX-CLAV 875-1 EACH PO (10:39)
[2023-11-28] MEDS ORDERED: COZAAR50 MG PO (10:39)
[2023-11-28] MEDS ORDERED: LIPITOR20 MG PO (10:39)
[2023-11-28] MEDS ORDERED: PYRIDOXINE HCL100 MG PO (10:40)
[2023-11-28] MEDS ORDERED: VITAMIN B-121000 MCG PO (10:40)
[2023-11-28] MEDS ORDERED: FOLIC ACID1 MG PO (10:40)
[2023-11-28] MEDS ORDERED: COZAAR100 MG PO (16:40)
[2023-11-28] MEDS ORDERED: AMOXICILLIN/POTASSIUM CLAV 875-125 TABLET PO SCH (17:00)
[2023-11-29] MEDS ORDERED: LOSARTAN POTASSIUM 100 MG TABLET PO SCH (09:00)
== END 2023-11-28 13:20 | disposition home or self-care (01) | DRG 690 ==
LOC: ER 19:32 → MEDI 11-24 20:53
PROVIDERS: Emergency Medicine; General Practice; Internal Medicine Hematology & Oncology; ADMIT Internal Medicine; ATTEND Internal Medicine
PROC: BW21YZZ Computerized Tomography (CT Scan) of Abdomen and Pelvis using Other Contrast (ICD-10-PCS; principal; 2023-11-24)
PROC: BF37ZZZ Magnetic Resonance Imaging (MRI) of Pancreas (ICD-10-PCS; 2023-11-25)
DX: N39.0 Urinary tract infection, site not specified (principal); E80.1 Porphyria cutanea tarda; N17.9 Acute kidney failure, unspecified; L97.929 Non-pressure chronic ulcer of unspecified part of left lower leg with unspecified severity; L97.919 Non-pressure chronic ulcer of unspecified part of right lower leg with unspecified severity; I10 Essential (primary) hypertension; E11.65 Type 2 diabetes mellitus with hyperglycemia; Z79.4 Long term (current) use of insulin; D64.9 Anemia, unspecified; E83.118 Other hemochromatosis

== ENCOUNTER 2024-12-12 04:35 | Emergency (ER) | payer OTHER ==
[~2024-12-12] VITALS: Ht 157.5 cm; Wt 60.3 kg
[~2024-12-12 04:35] MED LIST changes: +AMOX-CLAV 875-1 EACH PO; +ATORVASTATIN CA20 MG PO; +DICYCLOMINE HCL10 MG PO; +HUMALOG100 UNIT/2 SQ; +HYDRALAZINE HCL50 MG PO; +INTESTINEX680 M1 PO; +LIPITOR20 MG PO; +NIFEDIPINE ER60 MG PO; +PANTOPRAZOLE SO40 MG PO; +PYRIDOXINE HCL100 MG PO
[2024-12-12] MEDS ORDERED: FAMOTIDINE/PF 20 MG/2 ML VIAL IV PUSH STA (05:35)
[2024-12-12] MEDS ORDERED: ORPHENADRINE CITRATE 30 MG/ML AMPUL IV STA (05:37)
[2024-12-12] MEDS ORDERED: KETOROLAC TROMETHAMINE 30 MG VIAL IV STA (05:37)
[2024-12-12] MEDS ORDERED: MAG HYDROX/ALUMINUM HYD/SIMETH 30 ML BLIST.PACK PO STA (05:39)
[2024-12-12] MEDS ORDERED: ONDANSETRON HCL 2 MG/ML VIAL IV STA ×2 (05:39→07:42)
[2024-12-12] MEDS ORDERED: INSULIN REGULAR, HUMAN 1,000 UNIT/10 ML UNITS IV STA ×2 (05:58→07:36)
[2024-12-12] MEDS ORDERED: 0.9 % SODIUM CHLORIDE 1,000 ML IV ONE (06:00)
[2024-12-12 06:45] LABS: BASO % 0.4 % (0.1-1.2); EOS # 0.03 (0.04-0.54); EOS % 0.4 % (0.7-7.0); LYMPH # 0.99 (1.18-3.74); LYMPH % 11.8 % (19.3-53.1); MEAN PLATELET VOLUME 11.50 fl (9.4-12.4); MONO # 0.37 (0.24-0.82); MONO % 4.4 % (4.7-12.5); NEUT # 6.95 (1.56-6.13); NEUT % 82.6 % (34.0-71.1); RED CELL DISTRIBUTION WIDTH 13.5 % (11.6-14.4)
[2024-12-12 06:46] LABS: URINE APPEARANCE Clear; URINE BILIRRUBIN Negative (NEGATIVE); URINE BLOOD Negative; URINE COLOR Yellow; URINE LEUKOCYTE Negative; URINE NITRATE Negative; URINE PROTEIN Negative (NEGATIVE); URINE UROBILINOGEN 0.2 E.U./dl
[2024-12-12 06:47] LABS: URINE BACTERIA 5.9 uL (0.0-1933); URINE EPITHELIAL CELLS 3.6 uL (0.0-38.8)
[2024-12-12 06:51] LABS: URINE CAST 0.00 uL (0.0-1.40); URINE GLUCOSE >=1000 MG/DL (NEGATIVE); URINE KETONE 40 (NEGATIVE); URINE RBC 0.5 uL (0.0-20.8); URINE WBC 1.6 uL (0.0-23.2)
[2024-12-12 07:13] LABS: ALT/SGPT 171.0 U/L (12-78); AST/SGOT 131.0 U/L (15-37); BILIRUBIN TOTAL 1.32 mg/dL (0.3-1.2); BUN CREA RATIO 10.0 (7.0-25.0); CREATININE SERUM 1.56 mg/dL (0.55-1.02); GFR 34.85; GLOBULINA 4.8 G/DL (2.4-3.5); GLUCOSE FASTING 397.0 mg/dL (65-100); OSMOLALITY SERUM 284.0 MOSM/KG (275-295)
[2024-12-12] MEDS ORDERED: MORPHINE SULFATE 4 MG/ML CARTRIDGE IV STA (07:41)
== END 2024-12-12 14:16 | disposition home or self-care (01) ==
LOC: ER 04:36
PROVIDERS: General Practice
DX: M54.50 Low back pain, unspecified (principal); K21.9 Gastro-esophageal reflux disease without esophagitis; E11.65 Type 2 diabetes mellitus with hyperglycemia; Z79.4 Long term (current) use of insulin; I10 Essential (primary) hypertension; Z88.8 Allergy status to other drugs, medicaments and biological substances; N17.9 Acute kidney failure, unspecified

== ENCOUNTER 2024-12-13 09:48 | Emergency (ER) | payer OTHER ==
[~2024-12-13] VITALS: Ht 157.5 cm; Wt 60.3 kg
[2024-12-13] MEDS ORDERED: RINGERS SOLUTION,LACTATED 1,000 ML IV STA (12:17)
[2024-12-13 13:44] LABS: BASO % 0.3 % (0.1-1.2); EOS # 0.03 (0.04-0.54); EOS % 0.3 % (0.7-7.0); LYMPH # 0.91 (1.18-3.74); LYMPH % 9.8 % (19.3-53.1); MEAN PLATELET VOLUME 11.30 fl (9.4-12.4); MONO # 0.57 (0.24-0.82); MONO % 6.2 % (4.7-12.5); NEUT # 7.69 (1.56-6.13); NEUT % 83.1 % (34.0-71.1); RED CELL DISTRIBUTION WIDTH 13.6 % (11.6-14.4)
[2024-12-13] MEDS ORDERED: ONDANSETRON HCL 2 MG/ML VIAL IV SCH (14:15)
[2024-12-13] MEDS ORDERED: FAMOTIDINE/PF 20 MG/2 ML VIAL IV PUSH SCH (14:15)
[2024-12-13 14:17] LABS: URINE APPEARANCE Clear; URINE BILIRRUBIN Negative (NEGATIVE); URINE BLOOD Negative; URINE COLOR Yellow; URINE KETONE 15 (NEGATIVE); URINE LEUKOCYTE Negative; URINE NITRATE Negative; URINE PROTEIN Negative (NEGATIVE); URINE UROBILINOGEN 0.2 E.U./dl
[2024-12-13 14:18] LABS: ALT/SGPT 125.0 U/L (12-78); AST/SGOT 57.0 U/L (15-37); BILIRUBIN TOTAL 1.36 mg/dL (0.3-1.2); BUN CREA RATIO 13.0 (7.0-25.0); CREATININE SERUM 1.43 mg/dL (0.55-1.02); GFR 38.53; GLOBULINA 4.5 G/DL (2.4-3.5)
[2024-12-13 14:19] LABS: OSMOLALITY SERUM 279.0 MOSM/KG (275-295)
[2024-12-13 14:20] LABS: GLUCOSE FASTING 285.0 mg/dL (65-100)
[2024-12-13 14:28] LABS: URINE BACTERIA 3.5 uL (0.0-1933); URINE CAST 0.00 uL (0.0-1.40); URINE EPITHELIAL CELLS 1.0 uL (0.0-38.8); URINE GLUCOSE 250 MG/DL (NEGATIVE); URINE RBC 0.5 uL (0.0-20.8); URINE WBC 0.7 uL (0.0-23.2)
[2024-12-13] MEDS ORDERED: INSULIN REGULAR, HUMAN 1,000 UNIT/10 ML UNITS IV STA ×2 (15:36→20:46)
[2024-12-13] MEDS ORDERED: INSULIN REGULAR, HUMAN 1,000 UNIT/10 ML UNITS IV ONE (22:45)
[2024-12-13] MEDS ORDERED: INSULIN LISPRO 1,000 UNIT/10 ML UNITS SUBCUTANEO ONE (22:45)
[2024-12-14] MEDS ORDERED: PEPCID AC20 MG PO (00:10)
[2024-12-14] MEDS ORDERED: CARAFATE1 GM PO (00:10)
[2024-12-14] MEDS ORDERED: PROTONIX40 MG PO (00:10)
== END 2024-12-14 01:22 | disposition home or self-care (01) ==
LOC: ER 09:48
PROVIDERS: General Practice
DX: K29.70 Gastritis, unspecified, without bleeding (principal); M54.50 Low back pain, unspecified; R10.9 Unspecified abdominal pain; Z88.0 Allergy status to penicillin; Z88.8 Allergy status to other drugs, medicaments and biological substances